=== PATIENT | female | born 1955 | race Hispanic/Latino ===

== ENCOUNTER 2017-12-28 08:20 | Outpatient (CLI) | payer OTHER ==
--- NOTE | 2017-12-28 15:10 | MMO ---
BILATERAL SCREENING MAMMOGRAM: Date: 12/28/17 COMPARISON: 05/06/15. HISTORY: Screening mammography. FINDINGS: This patient's mammogram was interpreted with the assistance of computer-aided detection. Scattered fibroglandular densities are present. Benign-appearing microcalcifications are noted bilate rally. Stable intramammary nodes noted bilaterally. No dominant mass or architectural distortion. No concerning microcalcifications. IMPRESSION: BIRADS 2: Benign Finding(s) Annual screening mammography recommended. POS: GEO
== END 2017-12-28 08:21 | disposition home or self-care (01) ==
LOC: SCSMAMMO 08:20
PROVIDERS: ATTEND Family Medicine
DX: Z12.31 Encounter for screening mammogram for malignant neoplasm of breast (principal)
CPT/HCPCS: 77067

== ENCOUNTER 2020-04-01 04:12 | Emergency (ER) | payer OTHER ==
[2020-04-01] MEDS ORDERED: Morphine 10 MG/ML VIAL ONE (04:43)
--- NOTE | 2020-04-01 07:35 | RAD ---
RIGHT SHOULDER TWO VIEWS: Indication: Fall, right shoulder pain. FINDINGS: There is anterior inferior dislocation of the right glenohumeral joint without evidence of acute frac ture. Visualized right lung is clear. IMPRESSION: As above. POS: BH
--- NOTE | 2020-04-01 09:55 | RAD ---
THREE VIEWS OF THE RIGHT SHOULDER: INDICATION: Post reduction. COMPARISON: Prior exam dated 04/01/2020 at 4:12 a.m. FINDINGS: There has been interval reduction of the anterior inferior dislocation glenohumeral joint. Glenohume ral alignment is within normal limits. The visualized right lung is clear. IMPRESSION: Reduction of the glenohumeral joint dislocation. POS: BH
== END 2020-04-01 06:00 ==
LOC: EEVIPCON 04:12 → ERS 04:12
DX: S43.014A Anterior dislocation of right humerus, initial encounter (principal); S43.034A Inferior dislocation of right humerus, initial encounter; I10 Essential (primary) hypertension; F32.9 Major depressive disorder, single episode, unspecified; W19.XXXA Unspecified fall, initial encounter
CPT/HCPCS: 23650; 96372; J2270